=== PATIENT | female | born 1990 | race Caucasian/White ===

== ENCOUNTER 2020-05-23 12:29 | Emergency (ER) | payer OTHER, SELFPAY ==
[2020-05-23 12:38] VITALS: BP 117/79; PULSE 99; RESP 16; TEMP 36.9; O2SAT 99
--- NOTE | 2020-05-23 12:56 | ED.URI ---
HPI - URI/Sore Throat General Chief Complaint: Upper Respiratory Infection Stated Complaint: Sore Throat Time Seen by Provider: 05/23/20 12:56 Source: patient Mode of arrival: ambulatory Limitations: no limitations History of Present Illness HPI Narrative: Mariza Lew is a 30 yo female with sasonal allergies who comes with a sore throat, large tonsils, dry cough x3 days. No fever, no nausea vomiting diarrhea. Patient concerned that she has strep Related Data Allergies Allergy/AdvReac Type Severity Reaction Status Date / Time No Known Allergies Allergy Verified 05/23/20 12:56 Review of Systems Review of Systems: Narrative: CONSTITUTIONAL: Denies fever, chills, sweats. feels fatigued EYES: Denies visual changes, redness, discharge. ENT: Denies rhinorrhea, congestion,has Sore throat, otalgia. CARDIOVASCULAR: Denies chest pain, palpitations, edema. RESPIRATORY: Denies dyspnea, wheezing, cough GASTROINTESTINAL: Denies abdominal pain, nausea, vomiting, diarrhea. GENITOURINARY: Denies dysuria, hematuria, abnormal discharge SKIN: Denies rash or itching. NEUROLOGIC: Denies numbness, or focal weakness. PSYCHIATRIC: Denies anxiety or depression. PMFSH Past Medical History Medical History (Updated 05/23/20 @ 13:09 by Namrata Vargas CNP) No acute medical problems Surgical History Surgical History S/P lumpectomy, left breast [place] teeth extracted Social History Social History Smoking status: Former smoker Tobacco type: e-cigarettes/vaping Comments At time of signature, I agree with nursing past medical, surgical, social and family history. There is no relevant family history pertinent to the presenting complaint. Exam Narrative: Exam Narrative: GENERAL: This is a well-nourished, well-developed patient, in mild distress. fatigued so HEAD: normocephalic, atraumatic. EYES: I think so is distorted so okay sclera clear/white. Vision is grossly intact. EARS: External ears normal, auditory canals clear and without drainage, TMs normal without perforation. Hearing grossly intact. NOSE: External nose normal without nasal discharge, nares without redness, no rhinorrhea. THROAT: Mucous membranes moist, posterior pharynx erythema with bilateral enlarged tonsils NECK: Neck supple, non-tender CARDIOVASCULAR: Regular rate and rhythm without murmurs, gallops, or rubs. RESPIRATORY: Clear to auscultation. Breath sounds equal bilaterally. No wheezes, rales, or rhonchi. GASTROINTESTINAL: Abdomen soft, SKIN: warm, intact with no suspicious lesions or rash, good texture and turgor. NEURO: awake, alert, and oriented to person, place and time. There were no obvious focal neurologic abnormalities. Steady gait EXTREMITIES: Normal range of motion. BACK: Nontender without deformity. Course Course Emergency Course: Patient came to express care with a sore throat x3 days getting worse with a dry cough Started on prednisone and Tessalon Perles, to continue Claritin Does not improve patient should be tested for Covid so should go there Vital Signs Vital signs: Vital Signs Temperature 98.5 F 05/23/20 12:38 Pulse Rate 99 05/23/20 12:38 Respiratory Rate 16 05/23/20 12:38 Blood Pressure 117/79 05/23/20 12:38 Pulse Oximetry 99 05/23/20 12:38 Temperature 98.5 F 05/23/20 12:38 Pulse Rate 99 05/23/20 12:38 Respiratory Rate 16 05/23/20 12:38 Blood Pressure 117/79 05/23/20 12:38 Pulse Oximetry 99 05/23/20 12:38 MDM - URI/Sore Throat Differential Diagnosis Differential diagnosis: Likely upper respiratory infection, sinusitis, bronchitis, pharyngitis and other Lab Data Labs: Strep Screen Presumptive Negative *(Reference Range: Negative)* Critical Care Time Critical Care Time Critical Care Time: No Discharge Plan Dischar
== END 2020-05-23 13:15 | disposition home or self-care (01) ==
PROVIDERS: Emergency Provider Nurse Practitioner
DX: J02.9 Acute pharyngitis, unspecified (principal)
CPT/HCPCS: 87081; 87880; 99213; G0463

== ENCOUNTER 2021-11-03 10:14 | Emergency (ER) | payer OTHER, SELFPAY ==
--- NOTE | 2021-11-03 10:15 | ED.EYEPROB ---
HPI - Eye Problem General Chief complaint: Eye Problems Stated complaint: left eye sensitivity Time Seen by Provider: 11/03/21 10:15 Source: patient and RN notes reviewed History of Present Illness HPI Narrative: Patient is a 31-year-old female who presents the urgent care with complaints of left eye irritation for the last 2 days. Patient states it started after she mowed the lawn and she thought it was just due to allergies. Patient states that she does wear contacts and she has had them out for the last 2 days due to the irritation. Patient denies of any pain. States that it is sensitive to light. Patient has been using [id number] eyedrops and taking daily Zyrtec. No other acute complaints. No acute distress noted. Patient aware of the plan of care. Some parts of this dictation were generated by voice recognition software and may contain typographical and/or grammatical inaccuracies. Related Data Allergies Allergy/AdvReac Type Severity Reaction Status Date / Time No Known Allergies Allergy Verified 11/03/21 10:19 Review of Systems Review of Systems: CONSTITUTIONAL: Denies fever, chills, or sweats. EYES: Reports of left eye irritation, clear drainage and sensitivity to light ENT: Denies rhinorrhea, congestion, sore throat, or otalgia. CARDIOVASCULAR: Denies chest pain, palpitations, or edema. RESPIRATORY: Denies cough or dyspnea. GASTROINTESTINAL: Denies abdominal pain, nausea, vomiting, or diarrhea. GENITOURINARY: Denies dysuria or hematuria. SKIN: Denies rash or itching. MUSCULOSKELETAL: Denies back pain, joint pain, or myalgia. NEUROLOGIC: Denies headache, numbness, or weakness. All other systems reviewed are negative, except as documented in HPI. [facility] Past Medical History Medical History (Updated 11/03/21 @ 10:40 by TREVOR Sanford) No acute medical problems Surgical History Surgical History S/P lumpectomy, left breast [place] teeth extracted Social History Social History Smoking status: Former smoker Tobacco type: e-cigarettes/vaping Comments At the time of my signature, I reviewed and agree with the nursing past medical, surgical, social, and family history. There is no relevant family history pertinent to the patient complaint. Exam Narrative: GENERAL: This is a well-nourished, well-developed patient, in no apparent distress. HEAD: normocephalic, atraumatic. EYES: PERRL. Right sclera clear/white. Vision is grossly intact. Mild injected conjunctiva/sclera to the left with clear drainage. EARS: External ears normal NOSE: External nose normal with no obvious nasal discharge, nares without redness, no rhinorrhea. THROAT: Mucous membranes moist NECK: Neck supple SKIN: warm, intact with no suspicious lesions or rash, good texture and turgor. NEURO: awake, alert, and oriented to person, place and time. There were no obvious focal neurologic abnormalities. EXTREMITIES: No clubbing, cyanosis, or edema. Course Course Level of Care: Express Care Visit Vital Signs Vital signs: Vital Signs Temperature 98.7 F 11/03/21 10:20 Pulse Rate 100 11/03/21 10:20 Respiratory Rate 14 11/03/21 10:20 Blood Pressure 125/80 11/03/21 10:20 Pulse Oximetry 100 11/03/21 10:20 Temperature 98.7 F 11/03/21 10:20 Pulse Rate 100 11/03/21 10:20 Respiratory Rate 14 11/03/21 10:20 Blood Pressure 125/80 11/03/21 10:20 Pulse Oximetry 100 11/03/21 10:20 Reviewed MDM - Eye Problem MDM Narrative Medical decision making narrative: Advised the patient to try not to rub on the eye. Do not wear contacts for at least the next 3 to 5 days. May use a warm compress for comfort. Continue regular eye wash [id number] as well as the prescription eyedrops as directed. Continue your daily antihistamine and use Benadryl prior to bedtime. Follow-up with your PCP/shingles roofer
[2021-11-03 10:20] VITALS: BP 125/80; PULSE 100; RESP 14; TEMP 37.1; O2SAT 100
== END 2021-11-03 10:42 | disposition home or self-care (01) ==
PROVIDERS: Emergency Provider Nurse Practitioner Family
DX: H10.12 Acute atopic conjunctivitis, left eye (principal); Z87.891 Personal history of nicotine dependence
CPT/HCPCS: 99213; G0463

== ENCOUNTER 2021-12-14 12:03 | Emergency (ER) | payer OTHER, SELFPAY ==
--- NOTE | ~2021-12-14 | XR_ITS ---
XR hand RT min 3V DATE: 12/14/2021 12:15 INDICATION: Metacarpal pain after swinging golf club TECHNIQUE: 3 views of right hand COMPARISON: None FINDINGS: No fracture or dislocation, periosteal reaction or bone destruction, joint space narrowing, erosive change or chondrocalcinosis. IMPRESSION: Negative Reviewed, dictated and finalized at location A. IMPRESSION: Negative
[2021-12-14 12:07] VITALS: BP 134/88; PULSE 92; RESP 18; TEMP 37.2; O2SAT 100
--- NOTE | 2021-12-14 12:09 | ED.UPPEXIN ---
HPI - Extremity Injury (Upper) General Chief Complaint: Extremity Injury, Upper Stated Complaint: right hand injury Time Seen by Provider: 12/14/21 12:05 Source: patient and RN notes reviewed History of Present Illness HPI narrative: Patient is a 31-year-old female who presents the urgent care with complaints of right hand pain. Patient states that she was swinging a golf club and hit the ground yesterday, jarring her right/dominant hand. Patient states that she was able to work all day but is having difficulty making a fist or grabbing things with the hand. Patient has been taking Tylenol and ibuprofen for the pain. No other acute complaints. No acute distress noted. Patient aware of the plan of care. Some parts of this dictation were generated by voice recognition software and may contain typographical and/or grammatical inaccuracies. Related Data Home Medications Medication Instructions Recorded Confirmed norethindrone (contraceptive) 0.35 1 tablet PO DAILY 12/14/21 12/14/21 mg tablet Allergies Allergy/AdvReac Type Severity Reaction Status Date / Time No Known Allergies Allergy Verified 12/14/21 12:10 Review of Systems Review of Systems: CONSTITUTIONAL: Denies fever, chills, or sweats. EYES: Denies visual changes, redness, or discharge. ENT: Denies rhinorrhea, congestion, sore throat, or otalgia. CARDIOVASCULAR: Denies chest pain, palpitations, or edema. RESPIRATORY: Denies cough or dyspnea. GASTROINTESTINAL: Denies abdominal pain, nausea, vomiting, or diarrhea. GENITOURINARY: Denies dysuria or hematuria. SKIN: Denies rash or itching. MUSCULOSKELETAL: Reports of right hand pain NEUROLOGIC: Denies headache, numbness, or weakness. All other systems reviewed are negative, except as documented in HPI. COUNTS INCLUDE 234 BEDS AT THE [facility] Past Medical History Medical History (Updated 12/14/21 @ 12:39 by TREVOR Sanford) No acute medical problems Surgical History Surgical History S/P lumpectomy, left breast [place] teeth extracted Social History Social History Smoking status: Former smoker Tobacco type: e-cigarettes/vaping Comments At the time of my signature, I reviewed and agree with the nursing past medical, surgical, social, and family history. There is no relevant family history pertinent to the patient complaint. Exam Narrative: GENERAL: This is a well-nourished, well-developed patient, in no apparent distress. HEAD: normocephalic, atraumatic. EYES: PERRL. Sclera clear/white. Vision is grossly intact. EARS: External ears normal NOSE: External nose normal with no obvious nasal discharge, nares without redness, no rhinorrhea. THROAT: Mucous membranes moist NECK: Neck supple CARDIOVASCULAR: Regular rate and rhythm without murmurs, gallops, or rubs. RESPIRATORY: Clear to auscultation. Breath sounds equal bilaterally. No wheezes, rales, or rhonchi. SKIN: warm, intact with no suspicious lesions or rash, good texture and turgor. NEURO: awake, alert, and oriented to person, place and time. There were no obvious focal neurologic abnormalities. EXTREMITIES: Very mild edema noted to the dorsal third metatarsal region with mild tenderness. No obvious deformity. Range of motion to right upper extremity within normal limits with mild exacerbated pain on flexion/making a fist. Positive strong right radial pulse with capillary refill less than 2 seconds. Course Course Level of Care: Express Care Visit Vital Signs Vital signs: Vital Signs Temperature 99 F 12/14/21 12:07 Pulse Rate 92 12/14/21 12:07 Respiratory Rate 18 12/14/21 12:07 Blood Pressure 134/88 12/14/21 12:07 Pulse Oximetry 100 12/14/21 12:07 Oxygen Delivery Room Air 12/14/21 12:07 Temperature 99 F 12/14/21 12:11 Pulse Rate 92 12/14/21 12:11 Respiratory Rate 18 12/14/21 12:11 Blood Pressure 134/88 12/14/21 12:11
[2021-12-14 12:11] VITALS: BP 134/88; PULSE 92; RESP 18; TEMP 37.2; O2SAT 100
== END 2021-12-14 12:53 | disposition home or self-care (01) ==
PROVIDERS: Emergency Provider Nurse Practitioner Family
DX: S63.91XA Sprain of unspecified part of right wrist and hand, initial encounter (principal); X58.XXXA Exposure to other specified factors, initial encounter
CPT/HCPCS: 73130; 99213; G0463

== ENCOUNTER 2022-04-05 16:30 | Emergency (ER) | payer OTHER, SELFPAY ==
[2022-04-05 16:45] VITALS: BP 106/67; PULSE 80; RESP 18; TEMP 36.6; O2SAT 100
[2022-04-05 17:05] VITALS: BP 106/67; PULSE 80; RESP 18; TEMP 36.6; O2SAT 100
--- NOTE | 2022-04-05 17:34 | ED.URI ---
HPI - URI/Sore Throat General Chief Complaint: Upper Respiratory Infection Stated Complaint: sore throat chest tight Time Seen by Provider: 04/05/22 17:30 Source: patient, RN notes reviewed and old records reviewed Mode of arrival: ambulatory Limitations: no limitations History of Present Illness HPI Narrative: 32-year-old female who presents to [facility] care with complaints of 2-day history of sore throat, cough with some chest tightness with her cough. Patient denies any history of asthma, no shortness of breath no noted wheezing. Patient does have some sinus drainage, denies any ear pain. Patient reports that she has not taken any OTC medication for her symptoms. MD elicited complaint: cough and sore throat Pain scale (0-10): 3 Treatments prior to arrival: none Related Data Home Medications Medication Instructions Recorded Confirmed norethindrone (contraceptive) 0.35 1 tablet PO DAILY 12/14/21 12/14/21 mg tablet Allergies Allergy/AdvReac Type Severity Reaction Status Date / Time No Known Allergies Allergy Verified 12/14/21 12:10 Review of Systems Review of Systems: CONSTITUTIONAL: Denies malaise, chills, sweats, or fever. EYES: Denies visual changes, redness, or discharge. ENT: Reports rhinorrhea, congestion, sinus pain, no otalgia positive for sore throat. CARDIOVASCULAR: Reports chest tightness with cough, no palpitations, or edema. RESPIRATORY: Reports cough.? Denies dyspnea. GASTROINTESTINAL: Denies abdominal pain, nausea, vomiting, diarrhea SKIN: Denies rash or itching. MUSCULOSKELETAL: Denies myalgia. NEUROLOGIC: Denies headache. All systems reviewed & are unremarkable except as noted in HPI and below PMFSH Past Medical History Medical History (Updated 04/05/22 @ 17:44 by Susie Denson NP) No acute medical problems Surgical History Surgical History S/P lumpectomy, left breast [place] teeth extracted Social History Social History Smoking status: Former smoker Tobacco type: e-cigarettes/vaping Comments At time of signature, agree with nursing past medical, surgical, social and family history. There is no relevant family history pertinent to the presenting complaint Exam Narrative: GENERAL: Well-appearing, well-nourished, and in no acute distress. HEAD: Normocephalic EYES: PERRLA, conjunctivae clear ENT: Nares clear, turbinates edematous and erythematous, clear discharge. Mucous membranes moist. TM pearly carter with dull light reflex bilaterally; no tragal tenderness. Oropharynx erythematous without lesions. Tonsils enlarged and without exudate, no drooling, no hoarseness, no trismus, uvula midline. NECK: Supple. No lymphadenopathy CHEST: Clear to auscultation, breath sounds equal. No wheezing, rhonchi, rales, or stridor. No respiratory distress, speaks in full sentences. HEART: Regular rate and rhythm. No murmur heard. SKIN: Warm, dry, no rash. NEURO: Alert and oriented x3. PSYCH: Normal mood and affect Course Course Emergency Course: Patient is aware of diagnosis, understands and agrees to treatment plan.? Anticipatory guidance given.? Patient agrees to follow-up as directed and is aware of reasons to seek care at the emergency department. Portions of this record may have been created with voice recognition software Level of Care: Express Care Visit Vital Signs Vital signs: Vital Signs Temperature 36.6 C 04/05/22 16:45 Pulse Rate 80 04/05/22 16:45 Respiratory Rate 18 04/05/22 16:45 Blood Pressure 106/67 04/05/22 16:45 Pulse Oximetry 100 04/05/22 16:45 Oxygen Delivery Room Air 04/05/22 16:45 Temperature 36.6 C 04/05/22 17:05 Pulse Rate 80 04/05/22 17:05 Respiratory Rate 18 04/05/22 17:05 Blood Pressure 106/67 04/05/22 17:05 Pulse Oximetry 100 04/05/22 17:05 Oxygen Delivery Room Air
== END 2022-04-05 17:51 | disposition home or self-care (01) ==
PROVIDERS: Emergency Provider Registered Nurse
DX: J02.9 Acute pharyngitis, unspecified (principal); R05.9 Cough, unspecified; F17.290 Nicotine dependence, other tobacco product, uncomplicated
CPT/HCPCS: 87081; 87880; 99213; G0463

== ENCOUNTER 2022-05-26 12:58 | Emergency (ER) | payer OTHER, SELFPAY ==
[2022-05-26 13:34] VITALS: BP 113/71; PULSE 93; RESP 18; TEMP 36.8; O2SAT 100
--- NOTE | 2022-05-26 14:51 | ED.URI ---
HPI - URI/Sore Throat General Chief Complaint: Upper Respiratory Infection Stated Complaint: Sore Throat/Cough Time Seen by Provider: 05/26/22 14:51 Source: patient and RN notes reviewed Mode of arrival: ambulatory Limitations: no limitations History of Present Illness HPI Narrative: 32-year-old female presents with multiple complaints. She reports she has an itchy rash on the back of her right thigh that has been using. She denies pain in that area. She reports she has had a cough and sore throat that started yesterday, she is concerned for strep throat. MD elicited complaint: cough, sore throat and other (Rash) Related Data Home Medications Medication Instructions Recorded Confirmed norethindrone (contraceptive) 0.35 1 tablet PO DAILY 12/14/21 12/14/21 mg tablet Allergies Allergy/AdvReac Type Severity Reaction Status Date / Time No Known Allergies Allergy Verified 12/14/21 12:10 Review of Systems Review of Systems: CONSTITUTIONAL: Denies malaise, chills, sweats, or fever. EYES: Denies visual changes, redness, or discharge. ENT: Denies rhinorrhea, congestion, sinus pain, otalgia. Reports sore throat. CARDIOVASCULAR: Denies chest pain, palpitations, or edema. RESPIRATORY: Reports cough. Denies dyspnea. GASTROINTESTINAL: Denies abdominal pain, nausea, vomiting, diarrhea SKIN: Reports an itchy rash on the back of right thigh MUSCULOSKELETAL: Denies myalgia. NEUROLOGIC: Denies headache. All systems reviewed & are unremarkable except as noted in HPI and below PMFSH Past Medical History Medical History (Updated 05/26/22 @ 15:02 by Nadiya Armstrong NP) No acute medical problems Surgical History Surgical History S/P lumpectomy, left breast [place] teeth extracted Social History Social History Smoking status: Former smoker Tobacco type: e-cigarettes/vaping Comments At time of signature, agree with nursing past medical, surgical, social and family history. There is no relevant family history pertinent to the presenting complaint Exam Narrative: GENERAL: Well-appearing, well-nourished, and in no acute distress. HEAD: Normocephalic EYES: PERRLA, conjunctivae clear ENT: Nares clear, clear discharge. Mucous membranes moist. TM pearly carter with sharp light reflex bilaterally; no tragal tenderness. Oropharynx not erythematous without lesions. Tonsils not enlarged and without exudate, no drooling, no hoarseness, no trismus, uvula midline. NECK: Supple. No lymphadenopathy CHEST: Clear to auscultation, breath sounds equal. No wheezing, rhonchi, rales, or stridor. No respiratory distress, speaks in full sentences. HEART: Regular rate and rhythm. No murmur heard. SKIN: Warm, dry. Annular erythematous patch consistent with tinea and the posterior right thigh NEURO: Alert and oriented x3. PSYCH: Normal mood and affect Course Course Emergency Course: Patient is aware of diagnosis, understands and agrees to treatment plan. Anticipatory guidance given. Patient agrees to follow-up as directed and is aware of reasons to seek care at the emergency department. Portions of this record may have been created with voice recognition software Level of Care: Express Care Visit Vital Signs Vital signs: Vital Signs Temperature 98.3 F 05/26/22 13:34 Pulse Rate 93 05/26/22 13:34 Respiratory Rate 18 05/26/22 13:34 Blood Pressure 113/71 05/26/22 13:34 Pulse Oximetry 100 05/26/22 13:34 Oxygen Delivery Room Air 05/26/22 13:34 Temperature 98.3 F 05/26/22 13:34 Pulse Rate 93 05/26/22 13:34 Respiratory Rate 18 05/26/22 13:34 Blood Pressure 113/71 05/26/22 13:34 Pulse Oximetry 100 05/26/22 13:34 Oxygen Delivery Room Air 05/26/22 13:34 Reviewed. MDM - URI/Sore Throat MDM Narrative Medical decision making narrative: Differential diagnosis considered: Elias virus,
== END 2022-05-26 15:09 | disposition home or self-care (01) ==
PROVIDERS: Emergency Provider Nurse Practitioner
DX: J06.9 Acute upper respiratory infection, unspecified (principal); B35.4 Tinea corporis; Z87.891 Personal history of nicotine dependence
CPT/HCPCS: 87081; 99213; G0463

== ENCOUNTER 2022-08-12 13:50 | Emergency (ER) | payer OTHER, SELFPAY ==
[2022-08-12 13:56] VITALS: BP 130/74; PULSE 96; RESP 18; TEMP 36.8; O2SAT 99
--- NOTE | 2022-08-12 14:12 | ED.URI ---
HPI - URI/Sore Throat General Chief Complaint: Upper Respiratory Infection Stated Complaint: sore throat Time Seen by Provider: 08/12/22 14:00 Source: patient and RN notes reviewed History of Present Illness HPI Narrative: Patient is a 32-year-old female who presents to urgent care with complaints of a sore throat. Patient states it started Wednesday, she felt better yesterday and then had a scratchy throat this morning. States her daughter was positive for strep today. Patient denies any fever, nausea, vomiting, headache or other upper respiratory complaints. No acute distress noted. Patient aware of the plan of care. Some parts of this dictation were generated by voice recognition software and may contain typographical and/or grammatical inaccuracies. Related Data Home Medications Medication Instructions Recorded Confirmed norethindrone (contraceptive) 0.35 1 tablet PO DAILY 12/14/21 08/12/22 mg tablet Allergies Allergy/AdvReac Type Severity Reaction Status Date / Time No Known Allergies Allergy Verified 12/14/21 12:10 Review of Systems Review of Systems: CONSTITUTIONAL: Denies fever, chills, or sweats. EYES: Denies visual changes, redness, or discharge. ENT: Denies rhinorrhea, congestion, otalgia. Reports of sore throat CARDIOVASCULAR: Denies chest pain, palpitations, or edema. RESPIRATORY: Denies cough or dyspnea. GASTROINTESTINAL: Denies abdominal pain, nausea, vomiting, or diarrhea. GENITOURINARY: Denies dysuria or hematuria. SKIN: Denies rash or itching. MUSCULOSKELETAL: Denies back pain, joint pain, or myalgia. NEUROLOGIC: Denies headache, numbness, or weakness. All other systems reviewed are negative, except as documented in HPI. [facility] Past Medical History Medical History (Updated 08/12/22 @ 14:33 by TREVOR Sanford) No acute medical problems Surgical History Surgical History S/P lumpectomy, left breast [place] teeth extracted Social History Social History Smoking status: Former smoker Tobacco type: e-cigarettes/vaping Comments At the time of my signature, I reviewed and agree with the nursing past medical, surgical, social, and family history. There is no relevant family history pertinent to the patient complaint. Exam Narrative: GENERAL: This is a well-nourished, well-developed patient, in no apparent distress. HEAD: normocephalic, atraumatic. EYES: PERRL. Sclera clear/white. Vision is grossly intact. EARS: External ears normal, auditory canals clear and without drainage, TMs normal without perforation. Hearing grossly intact. NOSE: External nose normal with no obvious nasal discharge, nares without redness, no rhinorrhea. THROAT: Mucous membranes moist, mild erythema to posterior pharynx without exudate or ulceration. Mild postnasal drainage NECK: Neck supple, non-tender without lymphadenopathy CARDIOVASCULAR: Regular rate and rhythm without murmurs, gallops, or rubs. RESPIRATORY: Clear to auscultation. Breath sounds equal bilaterally. No wheezes, rales, or rhonchi. SKIN: warm, intact with no suspicious lesions or rash, good texture and turgor. NEURO: awake, alert, and oriented to person, place and time. There were no obvious focal neurologic abnormalities. EXTREMITIES: No clubbing, cyanosis, or edema. Course Course Level of Care: Express Care Visit Vital Signs Vital signs: Vital Signs Temperature 98.3 F 08/12/22 13:56 Pulse Rate 96 08/12/22 13:56 Respiratory Rate 18 08/12/22 13:56 Blood Pressure 130/74 08/12/22 13:56 Pulse Oximetry 99 08/12/22 13:56 Oxygen Delivery Room Air 08/12/22 13:56 Temperature 98.3 F 08/12/22 13:56 Pulse Rate 96 08/12/22 13:56 Respiratory Rate 18 08/12/22 13:56 Blood Pressure 130/74 08/12/22 13:56 Pulse Oximetry 99 08/12/22 13:56 Oxygen Delivery Room Air 08/12/22 13:56 Reviewed
== END 2022-08-12 14:35 | disposition home or self-care (01) ==
PROVIDERS: Emergency Provider Nurse Practitioner Family
DX: J02.9 Acute pharyngitis, unspecified (principal); Z87.891 Personal history of nicotine dependence
CPT/HCPCS: 87081; 87880; 99213; G0463

== ENCOUNTER 2022-10-05 09:27 | Emergency (ER) | payer OTHER, SELFPAY ==
[2022-10-05 09:30] VITALS: BP 107/69; PULSE 76; RESP 20; TEMP 36.7; O2SAT 100
--- NOTE | 2022-10-05 09:36 | ED.URI ---
HPI - URI/Sore Throat General Chief Complaint: Upper Respiratory Infection Stated Complaint: Cough Source: patient and RN notes reviewed History of Present Illness HPI Narrative: 32-year-old male presents to urgent care with complaints of a cough and midsternal chest pain with it since Wednesday. Patient reports the pain occurs with certain movements. Patient states her cough is worse at nighttime in the morning. His 1st bilateral ear fullness. Denies any fevers, chills, vomiting, shortness of breath, sore throat. Patient has been taking ibuprofen and cough at home with minimal relief. Related Data Home Medications Medication Instructions Recorded Confirmed norethindrone (contraceptive) 0.35 1 tablet PO DAILY 12/14/21 10/05/22 mg tablet Allergies Allergy/AdvReac Type Severity Reaction Status Date / Time No Known Allergies Allergy Verified 10/05/22 09:45 Review of Systems Review of Systems: Pertinent positives and pertinent negatives per HPI. FOR[facility]LY [facility] Past Medical History Medical History (Updated 10/05/22 @ 09:51 by Adriana Malagon, OFFICE MESSENGER) No acute medical problems Surgical History Surgical History S/P lumpectomy, left breast [place] teeth extracted Social History Social History Smoking status: Former smoker Tobacco type: e-cigarettes/vaping Comments At the time of my signature, I reviewed and agree with the nursing past medical, surgical, social, and family history. There is no relevant family history pertinent to the patient complaint. Exam Narrative: GENERAL: This is a well-nourished, well-developed patient, in no apparent distress. HEAD: normocephalic, atraumatic. EYES: PERRL. Sclera clear/white. Vision is grossly intact. EARS: External ears normal, auditory canals clear and without drainage, TMs normal without perforation. Hearing grossly intact. NOSE: External nose normal with no obvious nasal discharge, nares without redness, no rhinorrhea. THROAT: Mucous membranes moist, posterior pharynx clear. NECK: Neck supple, non-tender without lymphadenopathy, masses or thyromegaly. CARDIOVASCULAR: Regular rate and rhythm without murmurs, gallops, or rubs. RESPIRATORY: Clear to auscultation. Breath sounds equal bilaterally. No wheezes, rales, or rhonchi. GASTROINTESTINAL: Abdomen soft, non-tender, nondistended. Bowel sounds are active. No hepato-splenomegaly, or palpable masses. No guarding. SKIN: warm, intact with no suspicious lesions or rash, good texture and turgor. NEURO: awake, alert, and oriented to person, place and time. There were no obvious focal neurologic abnormalities. Course Course Level of Care: Express Care Visit Vital Signs Vital signs: Vital Signs Temperature 98.0 F 10/05/22 09:30 Pulse Rate 76 10/05/22 09:30 Respiratory Rate 20 10/05/22 09:30 Blood Pressure 107/69 10/05/22 09:30 Pulse Oximetry 100 10/05/22 09:30 Oxygen Delivery Room Air 10/05/22 09:30 Temperature 98.0 F 10/05/22 09:30 Pulse Rate 76 10/05/22 09:30 Respiratory Rate 20 10/05/22 09:30 Blood Pressure 107/69 10/05/22 09:30 Pulse Oximetry 100 10/05/22 09:30 Oxygen Delivery Room Air 10/05/22 09:30 Reviewed MDM - URI/Sore Throat MDM Narrative Medical decision making narrative: Take steroids as directed. May use the inhaler every 4-6 hours as needed for coughing. Increase fluids at home. Avoid any and all smoke. May use a humidifier in the bedroom. Increase your Vitamin C. Follow-up with personal physician in 2-5 days. Differential Diagnosis Differential diagnosis: Likely upper respiratory infection, sinusitis and bronchitis Critical Care Time Critical Care Time Critical Care Time: No Discharge Plan Discharge Clinical Impression: Bronchitis, Acute costochondritis Patient Disposition: Home, Self-Care Condition: Stable Instructions: Sarahi
== END 2022-10-05 09:53 | disposition home or self-care (01) ==
PROVIDERS: Emergency Provider Nurse Practitioner Family
DX: J40 Bronchitis, not specified as acute or chronic (principal); M94.0 Chondrocostal junction syndrome [Tietze]
CPT/HCPCS: 99213; G0463